=== PATIENT | female | born 1960 | race American Indian/Alaskan Native ===

== ENCOUNTER 2017-07-03 07:46 | Day surgery (SDC) | payer OTHER ==
--- NOTE | 2017-07-03 09:35 | CP.SDSHP ---
Same Day Surgery H & P - History Proposed Procedure: EGD Pre-Op Diagnosis: SEE NOTES - Previous Medical/Surgical History Cardiac: Hypertension, ASHD/CAD Pulmonary: Asthma Endocrine/Metabolic: Diabetes, Other - Allergies Allergies: Allergies No Known Allergies Allergy (Verified 07/03/17 08:58) - Physical Exam General Appearance: N Vital Signs: Vital Signs 07/03/17 08:50 Temperature 97.3 F L Pulse Rate 71 Respiratory 16 Rate Blood Pressure 116/71 O2 Sat by Pulse 98 Oximetry Mental Status: Alert & Oriented x3 Neuro: WNL Heart: Other Lungs: Other GI: WNL - {Optional Preform as Required} Breast: WNL Abdomen: Other Rectal: Other Integument: WNL : WNL Ortho: Other ENT: WNL - Impression Pt. Evaluated Today:Candidate for Anesthesia & Procedure: Yes - Date & Time Time: 09:35 Short Stay Discharge - Short Stay Discharge Admitting Diagnosis/Reason for Visit: DYSPEPSIA Disposition: HOME/ ROUTINE
[2017-07-03] MEDS ORDERED: Propofol 10 mg/ml Inj (20 ML) ONE (09:37)
[2017-07-03] MEDS ORDERED: Lactated Ringer's 1,000 ML IV ONE (09:52)
[2017-07-03 10:12] VITALS: TEMP 97.6
[2017-07-03] MEDS ORDERED: Belladonna-Phenobarbital PO ONE (10:35)
[2017-07-03 11:24] VITALS: BP 106/71; PULSE 63; RESP 15; O2SAT 99
== END 2017-07-03 11:10 | disposition home or self-care (01) ==
LOC: C.ENDO 07:46
PROVIDERS: ATTEND Specialist
DX: K29.70 Gastritis, unspecified, without bleeding (principal); K30 Functional dyspepsia; K29.80 Duodenitis without bleeding; B96.81 Helicobacter pylori [H. pylori] as the cause of diseases classified elsewhere; K26.9 Duodenal ulcer, unspecified as acute or chronic, without hemorrhage or perforation; E11.9 Type 2 diabetes mellitus without complications; I10 Essential (primary) hypertension; I25.10 Atherosclerotic heart disease of native coronary artery without angina pectoris; J45.909 Unspecified asthma, uncomplicated
CPT/HCPCS: 43239; 82948; 88305; 88342; J2001; J2704; J7120

== ENCOUNTER 2018-04-23 08:11 | Day surgery (SDC) | payer OTHER ==
[2018-04-22 13:52] VITALS: BMI 31.4
[2018-04-23] MEDS ORDERED: Propofol 10 mg/ml Inj (20 ML) ONE (11:58)
[2018-04-23] MEDS ORDERED: Lactated Ringer's 1,000 ML IV ONE (12:00)
--- NOTE | 2018-04-23 12:02 | CP.SDSHP ---
Same Day Surgery H & P - History Proposed Procedure: COLONSCOPY Pre-Op Diagnosis: SEE NOTES - Previous Medical/Surgical History Cardiac: ASHD/CAD Pulmonary: Asthma Endocrine/Metabolic: Diabetes, Other Misc: Other Pain: 4.Moderate Pain - Allergies Allergies: Allergies No Known Allergies Allergy (Verified 07/03/17 08:58) - Physical Exam General Appearance: N Vital Signs: Vital Signs 04/23/18 08:50 Temperature 97.7 F Pulse Rate 73 Respiratory 19 Rate Blood Pressure 146/84 O2 Sat by Pulse 97 Oximetry Mental Status: Alert & Oriented x3 Neuro: WNL Heart: Other Lungs: Other GI: Other - {Optional Preform as Required} Breast: WNL Abdomen: Other Rectal: Other Integument: WNL : WNL Ortho: WNL ENT: WNL - Impression Pt. Evaluated Today:Candidate for Anesthesia & Procedure: Yes - Date & Time Time: 12:01 Short Stay Discharge - Short Stay Discharge Admitting Diagnosis/Reason for Visit: CHANGE OF BOWEL HABITS Disposition: HOME/ ROUTINE
[2018-04-23] MEDS ORDERED: Midazolam 2 MG/2 ML VIAL ONE (12:04)
[2018-04-23] MEDS ORDERED: Belladonna-Phenobarbital PO STA (12:04)
[2018-04-23 13:08] VITALS: RESP 16
[2018-04-23 13:22] VITALS: PULSE 60; TEMP 97.2; O2SAT 99
[2018-04-23 13:31] VITALS: BP 140/90
== END 2018-04-23 14:20 | disposition home or self-care (01) ==
LOC: C.ENDO 08:11 → EDSTATUS 10:30 → C.ENDO 14:20
PROVIDERS: ATTEND Specialist
DX: K63.5 Polyp of colon (principal); K63.89 Other specified diseases of intestine; R19.4 Change in bowel habit; K57.30 Diverticulosis of large intestine without perforation or abscess without bleeding; K64.8 Other hemorrhoids; K64.4 Residual hemorrhoidal skin tags; I25.10 Atherosclerotic heart disease of native coronary artery without angina pectoris; J45.909 Unspecified asthma, uncomplicated; E11.9 Type 2 diabetes mellitus without complications
CPT/HCPCS: 45380; 82948; 88305; J2250; J2704; J7120